=== PATIENT | female | born 1975 | race Two or more races ===

== ENCOUNTER 2024-02-07 19:07 | Emergency (ER) | payer OTHER ==
[~2024-02-07] VITALS: Ht 160 cm; Wt 64.9 kg
[2024-02-07 19:47] VITALS: BP 142/93; TEMP 98.3
[2024-02-07] MEDS ORDERED: CYCL15CA23 PO (20:02)
[2024-02-07] MEDS ORDERED: GABA-532 PO (20:02)
[2024-02-07 20:58] VITALS: O2SAT 98
== END 2024-02-07 20:10 | disposition home or self-care (01) ==
LOC: ER 19:32
DX: M54.6 Pain in thoracic spine (principal); I10 Essential (primary) hypertension; E11.9 Type 2 diabetes mellitus without complications